=== PATIENT | male | born 1940 | race Two or more races ===

== ENCOUNTER 2024-09-20 20:26 | Inpatient (IN) | payer OTHER ==
[~2024-09-20] VITALS: Ht 157.5 cm; Wt 50.8 kg
[2024-09-20] MEDS ORDERED: TAMS-3 PO (21:03)
[2024-09-20 21:15] LABS: BASOPHILS % (AUTO) 0.3 % (0.0-2.0); EOSINOPHILS # (AUTO) 0.1 K/uL (0.0-0.7); EOSINOPHILS % (AUTO) 0.5 % (0.0-7.0); HEMATOCRIT 40.8 % (36.7-47.1); HEMOGLOBIN 13.3 g/dL (12.5-16.3); LYMPHOCYTES # (AUTO) 0.5 K/uL (0.8-4.8); LYMPHOCYTES % (AUTO) 3.6 % (20.5-51.5); MEAN CORPUSCULAR HEMOGLOBIN 28.9 uug (23.8-33.4); MEAN CORPUSCULAR HGB CONC 33 g/dL (32.5-36.3); MEAN CORPUSCULAR VOLUME 88.9 fL (73.0-96.2); MONOCYTES # (AUTO) 0.9 K/uL (0.1-1.30); MONOCYTES % (AUTO) 6.5 % (0.0-11.0); NEUTROPHILS # (AUTO) 12.2 K/uL (1.8-8.9); NEUTROPHILS % (AUTO) 89.1 % (38.5-71.5); PLATELET COUNT (AUTO) 234 K/uL (152-348); RED BLOOD CELL COUNT(AUTO) 4.59 MIL/uL (4.06-5.63); RED CELL DISTRIBUTION WIDTH 15.1 % (12.1-16.2); WHITE BLOOD COUNT (AUTO) 13.7 K/uL (3.6-10.2)
[2024-09-20 21:19] LABS: DIFFERENTIAL COMMENT 1
[2024-09-20 21:23] LABS: CALCIUM 8.7 mg/dL (8.5-10.1); CARBON DIOXIDE 23 mmol/L (21-32); CHLORIDE 99 mmol/L (98-107); GLUCOSE 132 mg/dL (74-106); POTASSIUM 4.6 mmol/L (3.5-5.1); SODIUM SERUM 134 mmol/L (136-145); UREA NITROGEN, BLOOD 27 mg/dL (7-18)
[2024-09-20 21:36] LABS: ALBUMIN 3.7 g/dL (3.4-5.0); BILIRUBIN,DIRECT 0.2 mg/dL (0.0-0.2); BILIRUBIN,TOTAL 0.8 mg/dL (0.2-1.0); MAGNESIUM 1.9 mg/dL (1.8-2.4); TOTAL PROTEIN, SERUM 7.3 g/dL (6.4-8.2)
[2024-09-20 21:37] LABS: THYROID STIMULATING HORMONE 2.86 mIU/mL (0.358-3.740)
[2024-09-20 21:41] LABS: *BILIRUBIN,URIN NEGATIVE (NEGATIVE); *BLOOD, URINE 2+ (NEGATIVE); *CLARITY,URINE CLEAR (CLEAR); *COLOR,URINE YELLOW (YELLOW); *KETONES,URINE NEGATIVE (NEGATIVE); *PROTEIN,URINE 1+ (NEGATIVE); *UROBILINOGEN,URINE 0.2 E.U./dl (NORMAL); LEUKOCYTE ESTERASE ,URINE 3+ (NEGATIVE); NITRITE, URINE POSITIVE (NEGATIVE); UGLUCOSE NEGATIVE (NEGATIVE)
[2024-09-20 21:54] LABS: BACTERIA,URINE MODERATE /HPF (NONE SEEN); SQUAMOUS EPITHELIAL CELL,UR FEW /HPF (NONE SEEN); WBC,URINE 20-50 /HPF (0-3)
[2024-09-20] MEDS ORDERED: FINA5TAB3 PO (22:04)
[2024-09-20] MEDS ORDERED: PANT40TA49 PO (22:04)
[2024-09-20] MEDS ORDERED: LIPA1CAP15 PO (22:04)
[2024-09-20] MEDS ORDERED: FLUC150T PO (22:04)
[2024-09-20] MEDS ORDERED: NYST15PO4 TP (22:04)
[2024-09-20] MEDS ORDERED: TELM40TA2 PO (22:04)
[2024-09-20] MEDS ORDERED: CIPR-262 PO (22:04)
[2024-09-20] MEDS ORDERED: SERT50TA PO (22:04)
[2024-09-20] MEDS ORDERED: FLUT16SP BNOSTRILS (22:04)
[2024-09-20] MEDS ORDERED: CEFEPIME HCL 1 G VIAL ONE ×2 (22:13→22:14)
[2024-09-20] MEDS: CEFEPIME HCL 2 G in IV DEXTROSE 5% 100 ML IV ONE (22:20)
[2024-09-20 22:31] LABS: LACTIC ACID 2.3 mmol/L (0.4-2.0)
[2024-09-20] MEDS: IV NORMAL SALINE 1000 ML BAG IV ONE (22:43)
[2024-09-20] MEDS ORDERED: REMEDY ESSENTIAL ZINC PASTE 113 GM TP PRN (23:45)
[2024-09-20] MEDS ORDERED: ONDANSETRON 4 MG/2 ML VIAL IV PRN (23:45)
[2024-09-20] MEDS ORDERED: MAGNESIUM HYDROXIDE 30 ML LIQUID UDC PO PRN (23:45)
[2024-09-21] MEDS: IV NS 1000 ML 1,000 ML IV PRN (01:26)
[2024-09-21 01:30] VITALS: BP 145/62; TEMP 98.4; O2SAT 95
[2024-09-21] MEDS: CEFEPIME HCL 2 GM in IV DEXTROSE 5% 100 ML IV SCH (05:29)
[2024-09-21 05:36] VITALS: BP 138/57; TEMP 98.4; O2SAT 96
[2024-09-21 06:53] LABS: BASOPHILS % (AUTO) 0.2 % (0.0-2.0); EOSINOPHILS # (AUTO) 0.1 K/uL (0.0-0.7); EOSINOPHILS % (AUTO) 0.8 % (0.0-7.0); HEMOGLOBIN 12.3 g/dL (12.5-16.3); LYMPHOCYTES % (AUTO) 5.9 % (20.5-51.5); MEAN CORPUSCULAR HEMOGLOBIN 29.5 uug (23.8-33.4); MEAN CORPUSCULAR HGB CONC 33 g/dL (32.5-36.3); MEAN CORPUSCULAR VOLUME 88.8 fL (73.0-96.2); MONOCYTES # (AUTO) 1.5 K/uL (0.1-1.30); MONOCYTES % (AUTO) 8.7 % (0.0-11.0); NEUTROPHILS # (AUTO) 14.6 K/uL (1.8-8.9); NEUTROPHILS % (AUTO) 84.4 % (38.5-71.5); PLATELET COUNT (AUTO) 230 K/uL (152-348); RED BLOOD CELL COUNT(AUTO) 4.17 MIL/uL (4.06-5.63); RED CELL DISTRIBUTION WIDTH 15.3 % (12.1-16.2); WHITE BLOOD COUNT (AUTO) 17.3 K/uL (3.6-10.2)
[2024-09-21 07:07] LABS: CALCIUM 7.9 mg/dL (8.5-10.1); CARBON DIOXIDE 23 mmol/L (21-32); CHLORIDE 104 mmol/L (98-107); CREATININE 0.9 mg/dL (0.6-1.3); GLUCOSE 99 mg/dL (74-106); PHOSPHOROUS 3.2 mg/dL (2.5-4.9); POTASSIUM 4.3 mmol/L (3.5-5.1); SODIUM SERUM 136 mmol/L (136-145); UREA NITROGEN, BLOOD 19 mg/dL (7-18)
[2024-09-21 07:08] LABS: DIFFERENTIAL COMMENT 1
[2024-09-21 07:16] VITALS: BP 138/60; TEMP 99.5; O2SAT 97
[2024-09-21] MEDS: ENOXAPARIN SODIUM 40 MG/0.4 ML DISP.SYRIN SQ SCH (08:16)
[2024-09-21 11:34] VITALS: BP 135/63; TEMP 98.3; O2SAT 96
[2024-09-21] MEDS ORDERED: ZINC220T3 PO (14:04)
[2024-09-21] MEDS ORDERED: ASCO500C18 PO (14:04)
[2024-09-21] MEDS ORDERED: CHOL10005 PO (14:04)
[2024-09-21] MEDS ORDERED: VITA-354 PO (14:05)
[2024-09-21] MEDS ORDERED: UBID30CA11 PO (14:05)
[2024-09-21 16:00] VITALS: BP 140/63; TEMP 98.1; O2SAT 93
[2024-09-21] MEDS: SERTRALINE HCL 50 MG TABLET PO SCH (20:36)
[2024-09-21] MEDS: MELATONIN 3 MG TABLET PO PRN (21:00)
[2024-09-21 21:10] VITALS: BP 136/61; TEMP 98; O2SAT 97
[2024-09-22 00:37] VITALS: BP 129/49; TEMP 97.7; O2SAT 95
[2024-09-22 05:15] VITALS: BP 132/62; TEMP 98; O2SAT 97
[2024-09-22 07:26] VITALS: BP 143/62; TEMP 98.1; O2SAT 97
[2024-09-22 11:06] VITALS: BP 145/64; TEMP 97.7; O2SAT 97
[2024-09-22] MEDS: LACTULOSE 20 G/30 ML LIQUID UDC PO SCH (13:00)
[2024-09-22 15:30] VITALS: BP 145/61; TEMP 98; O2SAT 96
[2024-09-22] MEDS: ENSURE ENLIVE (VAN) 240 ML LIQUID PO SCH (17:41)
[2024-09-22 19:00] VITALS: BP 158/67; TEMP 97.6; O2SAT 96
[2024-09-23] VITALS: BP 155/67; TEMP 98; O2SAT 96
[2024-09-23 04:00] VITALS: BP 124/61; TEMP 98.1; O2SAT 95
[2024-09-23 06:25] LABS: BASOPHILS # (AUTO) 0.1 K/UL (0.0-0.2); BASOPHILS % (AUTO) 0.6 % (0.0-2.0); EOSINOPHILS # (AUTO) 0.6 K/uL (0.0-0.7); EOSINOPHILS % (AUTO) 6.4 % (0.0-7.0); HEMOGLOBIN 12.8 g/dL (12.5-16.3); LYMPHOCYTES # (AUTO) 1.3 K/uL (0.8-4.8); LYMPHOCYTES % (AUTO) 13.8 % (20.5-51.5); MEAN CORPUSCULAR HEMOGLOBIN 29.9 uug (23.8-33.4); MEAN CORPUSCULAR HGB CONC 34 g/dL (32.5-36.3); MEAN CORPUSCULAR VOLUME 88.9 fL (73.0-96.2); NEUTROPHILS # (AUTO) 6.3 K/uL (1.8-8.9); NEUTROPHILS % (AUTO) 68.2 % (38.5-71.5); PLATELET COUNT (AUTO) 209 K/uL (152-348); RED BLOOD CELL COUNT(AUTO) 4.28 MIL/uL (4.06-5.63); RED CELL DISTRIBUTION WIDTH 14.8 % (12.1-16.2); WHITE BLOOD COUNT (AUTO) 9.2 K/uL (3.6-10.2)
[2024-09-23 06:31] LABS: CALCIUM 8.3 mg/dL (8.5-10.1); CARBON DIOXIDE 26 mmol/L (21-32); CHLORIDE 102 mmol/L (98-107); CREATININE 0.9 mg/dL (0.6-1.3); GLUCOSE 92 mg/dL (74-106); POTASSIUM 4.6 mmol/L (3.5-5.1); SODIUM SERUM 134 mmol/L (136-145); UREA NITROGEN, BLOOD 12 mg/dL (7-18)
[2024-09-23 06:39] LABS: DIFFERENTIAL COMMENT 1
[2024-09-23 07:38] VITALS: BP 158/66; TEMP 98.5; O2SAT 96
[2024-09-23] MEDS: ACETAMINOPHEN 325 MG TABLET PO PRN (08:17)
[2024-09-23 11:44] VITALS: BP 151/61; TEMP 98.6; O2SAT 98
[2024-09-23] MEDS ORDERED: CEPH500C2 PO (13:09)
[2024-09-23] MEDS ORDERED: CEFEPIME HCL 2 GM in IV DEXTROSE 5% 100 ML IV SCH (21:00)
== END 2024-09-23 15:40 | disposition home health service (06) | DRG 698 ==
LOC: ER 20:45 → TELE3 22:07
PROVIDERS: ADMIT Internal Medicine
PROC: 05HB33Z Insertion of Infusion Device into Right Basilic Vein, Percutaneous Approach (ICD-10-PCS; principal; 2024-09-22)
DX: T83.511A Infection and inflammatory reaction due to indwelling urethral catheter, initial encounter (principal); A41.50 Gram-negative sepsis, unspecified; R65.20 Severe sepsis without septic shock; F03.93 Unspecified dementia, unspecified severity, with mood disturbance; N39.0 Urinary tract infection, site not specified; Y73.8 Miscellaneous gastroenterology and urology devices associated with adverse incidents, not elsewhere classified; Y92.89 Other specified places as the place of occurrence of the external cause; F32.A Depression, unspecified; K59.00 Constipation, unspecified; Z85.46 Personal history of malignant neoplasm of prostate; N40.1 Benign prostatic hyperplasia with lower urinary tract symptoms; R33.8 Other retention of urine; K21.9 Gastro-esophageal reflux disease without esophagitis; R79.89 Other specified abnormal findings of blood chemistry; Z79.899 Other long term (current) drug therapy; R26.9 Unspecified abnormalities of gait and mobility; I10 Essential (primary) hypertension
CPT/HCPCS: 36415; 71045; 83605; 83735; 84100; 84443; 84484; 85025; 85730; 87040; 87077; 87086; 93005; A4606; G0378; J0692; J1650; J7040